=== PATIENT | female | born 1995 | race Caucasian/White ===

== ENCOUNTER 2023-09-13 12:54 | Emergency (ER) | payer OTHER ==
[~2023-09-13] VITALS: Ht 152.4 cm; Wt 101.3 kg
[~2023-09-13 12:54] MED LIST: EMTRICITABINE/TENOFOVIR 200MG/300MG TABLET PO SCH; RALTEGRAVIR 400 MG TAB (ISENTRESS) PO SCH
[2023-09-13] MEDS: ACETAMINOPHEN TAB 650MG DOSE (2X325MG) PO ONE (15:25)
[2023-09-13 15:33] LABS: BASO % 0.3 % (0.0-1.0); EOS % 0.3 % (0.0-3.0); HEMATOCRIT 42.1 % (36.0-47.0); HEMOGLOBIN 14.1 g/dl (12.0-15.5); LYMPH # 2.3 10^3/uL (1.5-5.0); LYMPH % 25.7 % (24.0-44.0); MEAN CORPUSCULAR HEMOGLOBIN 30.1 pg (27.0-33.0); MEAN CORPUSCULAR HGB CONC 33.5 g/dl (32.0-36.5); MEAN CORPUSCULAR VOLUME 89.8 fl (80.0-96.0); MONO # 0.4 10^3/uL (0.0-0.8); MONO % 4.3 % (2.0-8.0); NEUTROPHILS # 6.2 10^3/uL (1.5-8.5); NEUTROPHILS % 69.1 % (36.0-66.0); PLATELET COUNT, AUTOMATED 348 10^3/uL (150-450); RED BLOOD COUNT 4.69 10^6/uL (4.00-5.40); WHITE BLOOD COUNT 8.9 10^3/uL (4.0-10.0)
[2023-09-13 16:01] LABS: ALBUMIN 3.7 G/DL (3.2-5.2); ALKALINE PHOSPHATASE 132 U/L (46-116); ALT/SGPT < 9 U/L (7.0-40); AST/SGOT < 8 U/L (<34); BILIRUBIN,TOTAL 0.4 MG/DL (0.3-1.2); BLOOD UREA NITROGEN 9 MG/DL (9-23); CALCIUM LEVEL 9.4 MG/DL (8.5-10.1); CARBON DIOXIDE LEVEL 27 MMOL/L (20-31); CHLORIDE LEVEL 109 MMOL/L (98-107); CREATININE FOR GFR 0.64 MG/DL (0.55-1.30); GLOMERULAR FILTRATION RATE > 60.0 (>60); GLUCOSE, FASTING 87 MG/DL (60-100); HCG, SERUM QUALITATIVE NEGATIVE (NEGATIVE); SODIUM LEVEL 141 MMOL/L (136-145); TOTAL PROTEIN 6.8 G/DL (5.7-8.2)
[2023-09-13 16:03] LABS: HEPATITIS B SURFACE ANTIBODY NEGATIVE (POSITIVE)
[2023-09-13] MEDS: ONDANSETRON 4MG ORAL DISINTEGRATING TAB PO ONE (16:03)
[2023-09-13 16:15] LABS: HEPATITIS B SURFACE ANTIGEN NEGATIVE (NEGATIVE)
[2023-09-13 16:28] LABS: HIV 1&2 SCREEN NEGATIVE (NEGATIVE)
[2023-09-13 16:35] LABS: HEPATITIS C VIRUS ABY INDEX 0.03 INDEX (<0.8)
[2023-09-13] MEDS ORDERED: EXPOSURE KIT-ADULT 7 DAY SUPPLY PO ONE (16:40)
[2023-09-13 18:10] LABS: Trichomonas vaginalis (AMP) NOT DETECTED (NEGATIVE)
[2023-09-13 18:33] LABS: GC DNA AMPLIFICATION NEGATIVE (NEGATIVE)
[2023-09-13] MEDS: ULIPRISTAL ACETATE 30MG TAB (ELLA) PO ONE (19:13)
[2023-09-13] MEDS: metroNIDAZOLE (FLAGYL) 500MG TABLET PO ONE (19:14)
[2023-09-13] MEDS: AZITHROMYCIN 250MG TABLET PO ONE (19:15)
[2023-09-13] MEDS: EMTRICITABINE/TENOFOVIR 200MG/300MG TABLET PO ONE (19:15)
[2023-09-13] MEDS: RALTEGRAVIR 400 MG TAB (ISENTRESS) PO ONE (19:15)
[2023-09-13] MEDS: cefTRIAXone 500MG VIAL IM ONE (19:16)
[2023-09-13] MEDS: HEPATITIS B VACCINE 20MCG/ML 1ML SYRINGE (ADULT DOSE) IM.IMMUN ONE (19:17)
[2023-09-13] MEDS: HEPATITIS B IMMUNE GLOBULIN 5ML INJ IM.IMMUN ONE (19:18)
[2023-09-13] MEDS ORDERED: EMTR1TAB16 PO (19:19)
[2023-09-13] MEDS ORDERED: RALT40TA PO (19:19)
[2023-09-13] MEDS: METOCLOPRAMIDE INJ 10MG/2ML VIAL IV PRN (19:42)
[2023-09-13 21:27] VITALS: BP 117/71; TEMP 98.2; O2SAT 98
== END 2023-09-13 21:27 | disposition home or self-care (01) ==
LOC: M ED 14:10
DX: M25.511 Pain in right shoulder (principal); T76.21XA Adult sexual abuse, suspected, initial encounter; Q79.60 Ehlers-Danlos syndrome, unspecified; G40.89 Other seizures; J45.909 Unspecified asthma, uncomplicated; F43.10 Post-traumatic stress disorder, unspecified; F41.9 Anxiety disorder, unspecified; F32.A Depression, unspecified; F17.210 Nicotine dependence, cigarettes, uncomplicated; F10.10 Alcohol abuse, uncomplicated; Z88.8 Allergy status to other drugs, medicaments and biological substances; Z79.899 Other long term (current) drug therapy; Z23 Encounter for immunization
CPT/HCPCS: 73030; 80053; 84703; 85025; 86706; 86780; 86803; 87340; 87389; 87661; 87810; 87850; 90371; 90471; 90746; 96372; 96374; 99284; J0696; J2765

== ENCOUNTER → 2024-02-26 | Outpatient (CLI) | payer OTHER ==
[~2024-02-26] MED LIST changes: +EMTR1TAB16 PO; -EMTRICITABINE/TENOFOVIR 200MG/300MG TABLET PO SCH; +RALT40TA PO; -RALTEGRAVIR 400 MG TAB (ISENTRESS) PO SCH
== END ==
LOC: M SOG 07:49
PROVIDERS: ATTEND Physician Assistant
DX: M25.571 Pain in right ankle and joints of right foot (principal)

== ENCOUNTER 2024-03-07 18:18 | Emergency (ER) | payer OTHER ==
[~2024-03-07] VITALS: Ht 152.4 cm; Wt 105.6 kg
[2024-03-07 20:05] LABS: BASO % 0.5 % (0.0-1.0); EOS # 0.1 10^3/uL (0.0-0.5); EOS % 1.6 % (0.0-3.0); HEMATOCRIT 38.8 % (36.0-47.0); HEMOGLOBIN 12.9 g/dl (12.0-15.5); LYMPH # 3.6 10^3/uL (1.5-5.0); LYMPH % 42.8 % (24.0-44.0); MEAN CORPUSCULAR HEMOGLOBIN 29.8 pg (27.0-33.0); MEAN CORPUSCULAR HGB CONC 33.2 g/dl (32.0-36.5); MEAN CORPUSCULAR VOLUME 89.6 fl (80.0-96.0); MONO # 0.5 10^3/uL (0.0-0.8); MONO % 6.5 % (2.0-8.0); NEUTROPHILS # 4.1 10^3/uL (1.5-8.5); NEUTROPHILS % 48.5 % (36.0-66.0); PLATELET COUNT, AUTOMATED 331 10^3/uL (150-450); RED BLOOD COUNT 4.33 10^6/uL (4.00-5.40); WHITE BLOOD COUNT 8.4 10^3/uL (4.0-10.0)
[2024-03-07 20:30] LABS: BLOOD UREA NITROGEN 16 MG/DL (9-23); CALCIUM LEVEL 8.9 MG/DL (8.5-10.1); CARBON DIOXIDE LEVEL 21 MMOL/L (20-31); CHLORIDE LEVEL 111 MMOL/L (98-107); CREATININE FOR GFR 0.63 MG/DL (0.55-1.30); GLOMERULAR FILTRATION RATE > 60.0 (>60); GLUCOSE, FASTING 91 MG/DL (60-100); POTASSIUM SERUM 4.4 MMOL/L (3.5-5.1); SODIUM LEVEL 140 MMOL/L (136-145)
[2024-03-07] MEDS ORDERED: ISOVUE-370 76% 100ML VIAL As Ordered ONE (20:46)
[2024-03-07 21:43] LABS: KETONE, URINE AUTO RFX NEGATIVE (NEGATIVE); MUCUS, URINE RFX SMALL (NEGATIVE); NITRITE, URINE AUTO RFX NEGATIVE (NEGATIVE); RBC, URINE AUTO RFX 10 /HPF (0-3); SQUAM EPITHELIAL CELL UR AURFX 10 /HPF (0-6)
[2024-03-07] MEDS: levETIRAcetam 250MG TABLET (KEPPRA) PO ONE (21:45)
[2024-03-07] MEDS: METOCLOPRAMIDE INJ 10MG/2ML VIAL IV ONE (21:46)
[2024-03-07] MEDS: MORPHINE 4 MG/ML 1ML VIAL IV ONE (21:47)
[2024-03-07 21:50] LABS: LEUKOCYTE ESTERASE UR AUTO RFX TRACE (NEGATIVE); WBC, URINE AUTO RFX 12 /HPF (0-3)
[2024-03-07] MEDS ORDERED: REGL10TA6 PO (23:07)
[2024-03-07 23:19] VITALS: BP 119/62; TEMP 97.3; O2SAT 97
== END 2024-03-07 23:20 | disposition home or self-care (01) ==
LOC: M ED 18:18
DX: G89.18 Other acute postprocedural pain (principal); R10.32 Left lower quadrant pain; F10.10 Alcohol abuse, uncomplicated; Z88.8 Allergy status to other drugs, medicaments and biological substances; Z79.899 Other long term (current) drug therapy
CPT/HCPCS: 74018; 74177; 80048; 81001; 83605; 85025; 87086; 96374; 96375; 99283; J2765; Q9967